=== PATIENT | female | born 1980 | race Caucasian/White ===

== ENCOUNTER 2018-12-18 07:29 | Day surgery (SDC) | payer OTHER ==
[~2018-12-18] VITALS: Ht 157.5 cm; Wt 54.4 kg
[~2018-12-18 07:29] MED LIST: CEFAZOLIN SOD 1 GM in D5W 50 ML IV ONE
[2018-12-18] MEDS ORDERED: LevALBUTEROL HCL 1.25 MG/0.5 ML *CONC.* VIAL.NEB (XOPENEX CONC.) INH ONE ×2 (08:00→09:09)
[2018-12-18] MEDS ORDERED: LR 1,000 ML IV SCH (12:43)
[2018-12-18] MEDS ORDERED: HYDROmorphone 2 MG/ML VIAL IVP PRN ×3 (12:45)
[2018-12-18] MEDS ORDERED: MEPERIDINE HCL/PF 25 MG/ML DISP.SYRIN IVP PRN (12:45)
[2018-12-18] MEDS ORDERED: fentaNYL CITRATE 250 MCG/5 ML AMP ONE (15:15)
[2018-12-18] MEDS ORDERED: ONDANSETRON HCL 4 MG/2 ML VIAL ONE (15:15)
[2018-12-18] MEDS ORDERED: FUROSEMIDE 20 MG/2 ML VIAL ONE (15:15)
[2018-12-18] MEDS ORDERED: OXYCODONE/ACETAMINOPHEN 5-325 TABLET PO PRN ×2 (15:15)
[2018-12-18] MEDS ORDERED: BUPIVACAINE /PF 0.25% 30 ML VIAL INJ ONE (15:15)
[2018-12-18] MEDS ORDERED: NS 1000 ML IV.SOLN IV ONE (15:15)
[2018-12-18] MEDS ORDERED: ROCURONIUM BROMIDE 10 MG/ML (ZEMURON) ONE (15:15)
[2018-12-18] MEDS ORDERED: METOCLOPRAMIDE HCL 10 MG/2 ML VIAL ONE (15:15)
[2018-12-18] MEDS ORDERED: FAMOTIDINE PF 20 MG/2 ML VIAL ONE (15:15)
[2018-12-18] MEDS ORDERED: DEXAMETHASONE SOD PHOSPHATE 4 MG/ML VIAL ONE (15:15)
[2018-12-18] MEDS ORDERED: HYDROcodone/ACETAMIN 5-325 MG TAB (NORCO/ VICODIN) PO PRN (15:15)
[2018-12-18] MEDS ORDERED: SEVOFLURANE 15 MIN GAS INH ONE (15:15)
[2018-12-18] MEDS ORDERED: MIDAZOLAM HCL 5 MG/ML VIAL (VERSED) IV ONE (15:15)
[2018-12-18] MEDS ORDERED: PROPOFOL 200MG/ 20ML VIAL (DIPRIVAN) IV ONE (15:15)
[2018-12-18] MEDS ORDERED: ROPIVACAINE 0.2% (NAROPIN) PF SOLUTION 100 ML BOTTLE ONE (15:15)
[2018-12-18] MEDS ORDERED: NS IRRIG SOLN 1000 ML IR ONE (15:15)
[2018-12-18] MEDS ORDERED: KETOROLAC TROMETHAMINE 30 MG VIAL ONE (15:15)
[2018-12-18] MEDS ORDERED: ROPIVACAINE HCL/PF 5 MG/ML 0.5% 30 ML VIAL ONE (15:15)
[2018-12-18] MEDS ORDERED: LR 1,000 ML IV.SOLN IV ONE (15:15)
[2018-12-18] MEDS ORDERED: HYDROmorphone 1 MG INJ. 1 MG/ML AMPUL ONE (16:01)
[2018-12-18] MEDS: ONDANSETRON HCL 4 MG/2 ML VIAL IVP PRN ×2 (17:58→22:54)
[2018-12-18 18:25] VITALS: BP_SYST 138
[2018-12-18 19:54] VITALS: BP_SYST 137
[2018-12-19 00:43] VITALS: BP_SYST 129
[2018-12-19] MEDS: ONDANSETRON HCL 4 MG/2 ML VIAL IVP PRN (06:04)
[2018-12-19 09:03] VITALS: BP_SYST 96
[2018-12-19 09:36] VITALS: BP_SYST 98
[2018-12-19 12:37] VITALS: BP_SYST 98
[2018-12-19] MEDS ORDERED: LevALBUTEROL HCL 1.25 MG/0.5 ML *CONC.* VIAL.NEB (XOPENEX CONC.) INH ONE ×2 (12:45→12:50)
== END 2018-12-19 13:30 | disposition home or self-care (01) ==
LOC: SDS 07:29 → SMU 07:29 → SDS 12-19 13:30
PROVIDERS: ATTEND Specialist
DX: N80.0 Endometriosis of uterus (principal); N83.202 Unspecified ovarian cyst, left side; N83.201 Unspecified ovarian cyst, right side; Z79.899 Other long term (current) drug therapy; Z88.8 Allergy status to other drugs, medicaments and biological substances; K21.9 Gastro-esophageal reflux disease without esophagitis; J45.998 Other asthma
CPT/HCPCS: 58571; 87081; 88305; 88307; 94640; 94664; C1727; J0690; J1100; J1170 ×2; J1885; J1940; J2250; J2405 ×2; J2704; J2765; J2795; J3010; J3490 ×2; J7030; J7060; J7120; J7612 ×2; S2900